=== PATIENT | female | born 1950 | race Caucasian/White ===

== ENCOUNTER 2018-05-13 09:30 | Inpatient (IN) | payer OTHER ==
[~2018-05-13] VITALS: Ht 160 cm; Wt 99.3 kg
[~2018-05-13 09:30] MED LIST: ALLOPURINOL 10100 M1 PO; ALLOPURINOL 30300 M2 PO; AMOXICILLIN 50500 MG PO; AUGMENTIN 875-1 EACH PO; COZAAR 25 MG TA25 M1 PO; DEMADEX20 MG PO; DOXYCYCLINE 10100 MG PO; FLONASE 0.05%50 MCG NASAL; GYNE-LOTRIMIN-745 GM; KEFLEX500 MG PO; LASIX 40 MG TAB40 M2 PO; LEVOTHYROXINE; MELOXICAM PO; METFORMIN HCL500 MG PO; PANTOPRAZOLE SO40 M1 PO; POTASSIUM PO; POTASSIUM99 M1 PO; PRAVACHOL20 MG PO; TYLENOL325 MG PO
[2018-05-13 09:43] VITALS: BP 151/51
[2018-05-13 10:35] LABS: ALBUMIN 4.1 g/dL (3.4-5.0); CALCIUM 7.3 mg/dL (8.5-10.1); DIRECT BILIRUBIN 0.1 mg/dL (<0.1-0.3); TOTAL BILIRUBIN 0.5 mg/dL (<0.1-1.0); TOTAL PROTEIN 7.9 g/dL (6.4-8.2)
[2018-05-13 10:37] LABS: POTASSIUM 2.5 mmol/L (3.5-5.1)
[2018-05-13 11:29] LABS: BASOPHILS 0.2 % (0.0-2.0); EOSINOPHILS 0.5 % (0.0-3.0); HEMATOCRIT 26.3 % (37.0-47.0); HEMOGLOBIN 9.1 gm/dL (12.0-15.0); LYMPHOCYTES 11.9 % (24.0-44.0); MCHC 34.5 g/dL (28.0-37.0); MCV 83.9 fL (80.0-100.0); MONOCYTES 5.3 % (1.0-8.0); PLATELET COUNT 286 thou/uL (150-400); POLYS 82.1 % (36.0-66.0); RBC 3.14 mil/uL (4.20-5.00); RDW 14.3 % (10.5-14.5); WBC 13.4 thou/uL (4.0-11.0)
--- NOTE | 2018-05-13 11:32 | NUR ---
PT STATES THAT THE POTASSIUM IS HURTING IT IS INFUSING. LOWERED RATE TO 25 ML/HR FOR PT'S COMFORT. EXPLAINED TO PT THAT THE PAIN IS NORMAL AND WOULD ASK PROVIDER FOR SOME MAINTENENCE FLUIDS THAT WILL HELP WITH THE PAIN. WILL CONTINUE TO MONITOR AND INTERVENE PRN.
[2018-05-13 12:54] LABS: URINE BILIRUBIN NEGATIVE (Negative); URINE BLOOD 1+ (Negative); URINE CLARITY CLEAR; URINE COLOR YELLOW; URINE GLUCOSE-RANDOM* NEGATIVE (Negative); URINE KETONES NEGATIVE (Negative); URINE LEUKOCYTES-REFLEX NEGATIVE (Negative); URINE NITRITE-REFLEX NEGATIVE (Negative); URINE PROTEIN (DIPSTICK) NEGATIVE (Negative); URINE UROBILINOGEN 0.2 E.U./dl (0.2-1.0)
[2018-05-13 13:03] LABS: BACTERIA-REFLEX 1-9 Few /HPF (None Seen); CASTS None Seen /LPF (None Seen); CRYSTALS None Seen /LPF (None Seen); SQUAMOUS 0-3 Few /LPF (0-3); URINE RBC 0-2 Rare /HPF (0-2); URINE WBC-REFLEX 0-5 Rare /HPF (0-5)
[2018-05-13] MEDS ORDERED: SYNTHROID25 MC1 PO (14:18)
[2018-05-13] MEDS ORDERED: LASIX 40 MG TAB40 M2 PO (14:20)
[2018-05-13] MEDS ORDERED: HYDROXYZINE HCL25 M1 PO (14:20)
[2018-05-13] MEDS ORDERED: ZYLOPRIM300 MG PO (14:21)
[2018-05-13] MEDS ORDERED: CALCITRIOL0.25 MCG PO (14:22)
[2018-05-13] MEDS ORDERED: ZAROXOLYN 5MG TA5 MG PO (14:22)
[2018-05-13 14:45] VITALS: BP 114/50
[2018-05-13 15:10] VITALS: BP 132/57
[2018-05-13 15:55] VITALS: BP 152/70
[2018-05-13 17:42] LABS: % SATURATION 22 % (20-39); IRON 73 ug/dL (50-170); TIBC 332 ug/dL (250-450)
--- NOTE | 2018-05-13 18:11 | NUR ---
PATIENT ADMIT TO UNIT AT 1600. A/O X4. GENERLIZED TREEACE EDEMA. DENIES N/V. WEAKNESS. WILL KEP MONITOR.
[2018-05-13 20:10] VITALS: BP 121/60
[2018-05-14 00:15] VITALS: BP 137/54
--- NOTE | 2018-05-14 03:07 | NUR ---
resting quietly, tonight. calls approp for assist out of bed. continues on ivfluids. no concerns voiced by pt. daisy reviewed.
[2018-05-14 05:00] VITALS: BP 138/52
[2018-05-14 05:51] LABS: HEMOGLOBIN 8.3 gm/dL (12.0-15.0); MCH 29.4 pg (26.0-34.0); MCHC 34.6 g/dL (28.0-37.0); MCV 84.9 fL (80.0-100.0); RBC 2.83 mil/uL (4.20-5.00); RDW 13.9 % (10.5-14.5); WBC 13.3 thou/uL (4.0-11.0)
[2018-05-14 06:13] LABS: ALBUMIN 3.6 g/dL (3.4-5.0); CALCIUM 7.3 mg/dL (8.5-10.1); CREATININE 6.6 mg/dL (0.6-1.0); PHOSPHORUS 7.1 mg/dL (2.5-4.9)
[2018-05-14 06:22] LABS: POTASSIUM 2.4 mmol/L (3.5-5.1)
--- NOTE | 2018-05-14 07:26 | HC ---
[facility] [place] [address] CONSULTATION Name: JYOTI DAMICO Room #: 363-P ADM IN M.R.#: [id number] Admission: 05/13/18 ������������������ Attend Phys: Solomon Vergara MD Discharge: ������������������ Date of : 46 Report #: [id number] THIS REPORT FOR: //name// CC: Solomon Gold MD DATE OF SERVICE: 05/13/2018 REASON FOR CONSULTATION: Chronic kidney disease stage 5 with acute worsening. HISTORY OF PRESENT ILLNESS: This is a 68-year-old female who has chronic kidney disease stage 5. She is followed chronically in our office by Dr. Naomi Montilla. She saw Dr. Montilla in the office about 12 days ago. At that time, her creatinine level was 5.6. She was not deemed to be uremic at that time. She had been on chronic furosemide 80 mg in the morning and 40 in the afternoon, but was having increasing amounts of edema. The patient states she has gained about 50 pounds over the past year, but obviously only some of its edema on looking at her today. The patient was given a prescription for metolazone 5 mg to be taken once daily, which she did for a few days, but she began feeling very weak. She called back to the office and was instructed to go to every other day administration, but for some reason which she explains as being, I thought I could handle it, she continued to take it once daily. That was until about 4 days ago when she finally stopped. Since that time, she has continued to be weak. She has had fatigue. She has not been herself. She has not been able to eat. She has had nausea and some dry heaves. No diarrhea. She has had some mid abdominal pain. She denies dyspnea. Her edema has resolved. She is unaware of fevers, chills or sweats. Her finally brought her into the Emergency Room today because she was feeling so poorly. Her blood pressures at home have been in the 140/70 range according to the patient. On presentation to the Emergency Room, the lowest blood pressure was 123/43 and then a couple of hours later, down to 114/50. She has had no fever. She was given some IV fluids in the Emergency Room. This did not change the way she felt very much. She has had previous hospitalizations at this hospital and had been on some nonsteroidals at that time. She vehemently denies nonsteroidals at this time. She has atrophic kidney. She has longstanding diabetes and hypertension in addition. PAST MEDICAL HISTORY: Diabetes as noted above. Also, hypertension as noted above. Hypothyroidism was diagnosed a number of years ago. It looks like she has been off and then on and then off thyroid replacement over the years. Most recently, it looks like she has actually been taking levothyroxine 0.025 mg once daily, although apparently she has still high TSH on her last office visit. She has had some anemia associated with chronic kidney disease. She is unable to take oral iron. She has not been able to get erythropoietin as a supplement due to lack of ability to make the copay. [facility] [address] [place] [address] CONSULTATION Name: JYOTI DAMICO Room #: 363-P ADM IN M.R.#: [id number] Admission: 05/13/18 ������������������ Attend Phys: Solomon Vergara MD Discharge: ������������������ Date of : 46 Report #: [id number] PAST SURGICAL HISTORY: Include placement of a right upper arm brachiocephalic fistula, which appears to be in 09/2017. MEDICATIONS: Losartan 50 mg daily, furosemide 80 mg in the morning and 40 mg in the evening or afternoon. Calcitriol 0.25 mcg daily. Metolazone, which she was taking 5 mg daily, although has not taken in the last 4 days. Pravastatin 20 mg daily, pantoprazole 40 mg daily, hydroxyzine 25 mg at bedtime, allopurinol 150 mg daily and the levothyroxine 0.025 mg daily. ALLERGIES: SULFA, WHICH CAUSES A RASH. FAMILY HISTORY: Noncontributory. SOCIAL HISTORY: The patient is and accompanied by her at this time. They live in [place], [place]. She is retired. She is a nonsmoker. REVIEW OF SYSTEMS: Again, has felt very weak and tired and fatigued recently. She says her edema has gotten better. Again, decreased appetite. She has had some nausea and dry heaves, says she has not had enough in her stomach actually of emesis. No diarrhea. No difficulty voiding urine. She has had some back discomfort, which she describes as being worse and it is in the low back after a fall about a month ago when she fell on the ice. She is unaware of fevers, chills or sweats. She denies headache or visual change. PHYSICAL EXAMINATION: GENERAL: A 68-year-old female, awake, responsive, a bit of euphoric affect. VITAL SIGNS: Blood pressure 132/57, heart rate 56, respiratory rate 18, oxygen saturation 95%, temperature 98.1. HEENT: Pupils are equal and reactive. Sclerae nonicteric. Oral mucosa is moist at this time. NECK: Supple without adenopathy, thyromegaly, JVD or bruit. CHEST: Clear bilaterally. HEART: Regular rate and rhythm. I hear no rub. ABDOMEN: Has bowel sounds, which are present, is soft. She says she has pain in the mid abdomen, but I cannot find organomegaly, masses or tenderness. EXTREMITIES: Showed no lower extremity edema. She has 1+ peripheral pulses. She has a right upper arm brachiocephalic fistula in place, which has matured fairly nicely. LABORATORY DATA: Sodium 123, potassium 2.5, chloride 81, bicarb 25, BUN 135, creatinine 7.0, glucose 130, total bilirubin 0.5, calcium 7.3, phosphorus 4.9, magnesium 1.4. Alkaline phosphatase 140, ALT 18, total protein 7.9, albumin 4.1. Hemoglobin 9.1, hematocrit 26.3, white count 13.4, platelets 286,000. Differential on the white count, 82 neutrophils, 12 lymphs, 5 monocytes. Urinalysis: Specific gravity 1.010, pH 5.5, 1+ blood, 0-5 white cells, 0-[address] [address] CONSULTATION Name: JYOTI DAMICO Room #: 363-P ADM IN [facility].#: [id number] Admission: 05/13/18 ������������������ Attend Phys: Solomon Vergara MD Discharge: ������������������ Date of : 48 Report #: [id number]. I reviewed her chest x-ray, which shows no infiltrate or evidence of heart failure. Ultrasound shows atrophic kidneys with multiple acquired cyst. ASSESSMENT: 1. Chronic kidney disease stage 5. She has been at stage 5 for a long period of time. She has had recent problems with volume management. She became much more symptomatic when metolazone was added to her regimen. It was effective in getting rid of her edema, but obviously left her feeling poorly, and also she has developed hyponatremia and hypokalemia with this. We will stop her diuretics at this time. I will judiciously give her back a bit of volume. If her symptoms improve and her creatinine comes back down and her electrolytes correct, we can probably continue her on an outpatient regimen. If those things do not all correct, it could well be that she has become uremic and then we need to start her on dialysis. I am not on the impression that she is uremic at this time, or at least that is the entire presentation here. Her fistula is ready to use if she does need dialysis, so once again will see how she responds to a bit of IV fluids. 2. Longstanding hypertension. Mid-range today, possibly a bit lower than she is used to with the addition of the metolazone recently. 3. Type 2 diabetes, on no medications at this time. 4. Hypothyroidism. We will need to recheck the level of her TSH. 5. Anemia, a bit better than she was in the office, but that may be due to the hemoconcentration. I will recheck iron levels, so we can give her some iron and potentially erythropoietin here in the hospital. PLAN: 1. I will give her some IV fluids, normal saline at 100 mL an hour. 2. Replace some oral potassium. 3. Monitor intake and output. 4. Repeat labs in the morning. 5. Recheck thyroid levels. 6. Recheck iron levels and replace as needed. 7. We will see how she responds in the next 24 hours and then make further decisions as to whether we need to start dialysis or not. ��������������������������������������������� <ELECTRONICALLY SIGNED> ���������������������������������������� By: Kale Huang MD ��������������������������������������������� 05/14/18 0726 [id number] Kale Huang MD /nt
[2018-05-14 07:45] VITALS: BP 13/43
[2018-05-14 16:33] VITALS: BP 124/41
--- NOTE | 2018-05-14 16:49 | NUR ---
INITIAL ASSESSMENT: Received consult. SW reviewed chart and spoke with attending physician. Pt was admitted from home due to pancreatitis an acute on chronic kidney injury. Pt with hx of CKD stage 5. Pt may need to start dialysis. Pt's manager distribution is Dr. Montilla. PCP is Dr. Gold. Per chart, pt is alert/orientated x 4 and lives at home with her s/o. Prior to admission, pt was independent with ADLs. No use of DME prior to admission. SW will follow up with pt tomorrow to discuss discharge planning and possible new dialysis.
--- NOTE | 2018-05-14 19:45 | NUR ---
assumed patient care at 0700. a/o x4. pleasant. denies pain. up stb. progressing towards poc goals.
[2018-05-14 20:06] VITALS: BP 132/45
[2018-05-15 03:44] VITALS: BP 154/67
--- NOTE | 2018-05-15 05:17 | NUR ---
AFTER ASSESSMENT WHILE READING PHYSICIAN NOTES, IT WAS NOTED THAT THE PT WAS GOING TO BE A MST PT. CALLED SHASHI TONEY AND DISCUSSED THE MATTER AND REASONS TO SUPPORT THE MOVE AND IT WAS AGREED. PT ESTABLISHED ON TELE AND RUNNING SR. REVIEW LABS AND WILL MONITOR THE ELECTROLYTES. PT DID NOT HAVE DIARRHEA OVERNIGHT AND STATES NO MORE N/V. PT REFUSED TO WEAR SCD'S OVERNIGHT, EDUCATED THE PT ON THE POSITIVES BUT SHE STILL SAID "No". FOLLOWING POC WITH IVF AND MOVING TOWARDS DC GOALS.
[2018-05-15 06:29] LABS: ALBUMIN 3.4 g/dL (3.4-5.0); CALCIUM 7.2 mg/dL (8.5-10.1); CREATININE 6.2 mg/dL (0.6-1.0); PHOSPHORUS 5.9 mg/dL (2.5-4.9); POTASSIUM 3.2 mmol/L (3.5-5.1)
[2018-05-15 07:42] VITALS: BP 132/51
[2018-05-15 15:04] VITALS: BP 158/56
--- NOTE | 2018-05-15 15:12 | NUR ---
VELASQUEZ reviewed chart and spoke with nursing and attending physician. Pt to have first dialysis today and will have dialysis tomorrow. Pt currently off the unit having dialysis. VELASQUEZ spoke with Linda at [facility] to begin process of arranging pt's outpatient dialysis. VELASQUEZ faxed clinical info to Linda for review. Pt had AV fistula placed about a year ago. VELASQUEZ will follow up with pt at a later time. VELASQUEZ is following to assist as needed with discharge planning.
--- NOTE | 2018-05-15 15:30 | NUR ---
TO 4E VIA BED FOR HD.
--- NOTE | 2018-05-15 16:35 | NUR ---
BACK TO UNIT UNABLE TO HD. STATES WILL TRY AGAIN IN AM.
--- NOTE | 2018-05-15 17:11 | NUR ---
END OF SHIFT NOTE. PT TO HD TODAY,, UNSUCCESSFUL. VSS. NO COMPLAINTS OF PAIN. AMBULATING WITH ASSIST. VOIDING PER BATHROOM.
[2018-05-15 19:07] VITALS: BP 147/58
[2018-05-16 03:54] VITALS: BP 135/50
--- NOTE | 2018-05-16 05:13 | NUR ---
ASSUNED PATIENT CARE AT 1845. PATIENT VITALS ARE STABLE. NURSE ADMINISTERED POTASSIUM TAB PER HCP ORDER TO TX LOW POTASSIUM LEVEL. PATIENT AMBULATES WITH SBA DUE TO LINES. PATIENT HAD NO COMPLAINTS OF N/V ON THIS SHIFT. SHE POSSIBLE WILL RECIEVE DIALYSIS IS HER R UPPER ARM FISTULA CAN BE ACCESSED. SHE IS COOPERATIVE WITH CARE AND PLEASANT. POSSIBLE D/C TODAY.
[2018-05-16 06:12] LABS: ALBUMIN 3.2 g/dL (3.4-5.0); CALCIUM 7.7 mg/dL (8.5-10.1); CREATININE 6.2 mg/dL (0.6-1.0); PHOSPHORUS 5.1 mg/dL (2.5-4.9); POTASSIUM 3.7 mmol/L (3.5-5.1)
--- NOTE | 2018-05-16 09:41 | NUR ---
PATIENT WENT TO HD AT 0750.
[2018-05-16 12:46] VITALS: BP 129/51
[2018-05-16 15:10] LABS: HEPATITIS B SURFACE AG Negative (Negative)
--- NOTE | 2018-05-16 16:15 | NUR ---
VELASQUEZ reviewed chart and spoke with nursing and attending physician. Pt had first dialysis this morning. Dialysis was unsuccessful yesterday due to not being able to access pt's fistula. VELASQUEZ faxed updated progress note to Linda at [facility]. Per Linda, [facility] will reach out to pt to discuss location and pt's insurance. VELASQUEZ met with pt and s/o at bedside. Introduced role of SW. Pt is alert/orientated x 4. Pt reports she lives at home. Prior to admission, pt was independent with ADLs. No use of DME. Pt's PCP is Dr. Gold. SW discussed need to arrange outpatient dialysis. Pt states she does not know if she will need it director long term care. SW explained that physician has ordered to arrange outpatient dialysis. Pt and s/o verbalized understanding. SW is following to assist as needed with discharge planning.
[2018-05-16 17:12] VITALS: BP 135/51
--- NOTE | 2018-05-16 17:56 | NUR ---
ASSUMED PATIENT CARE AT 0700. A/O X4. LOERATED HD TODAY. NO SOB, NO PAIN. UP WITH STB. PROGRESSING TOWARDS POC GOALS.
[2018-05-16 20:10] VITALS: BP 126/56
--- NOTE | 2018-05-17 04:10 | NUR ---
resting quietly tonight. she stated that she is feeling more tired than usual since dialysis. she has no more complaints of nausea. calls approp for assist out of bed. she did complain of some generalized discomfort, acetaminophen effective. progressing toward discharge goals.
[2018-05-17 05:00] VITALS: BP 119/60
[2018-05-17 07:56] VITALS: BP 143/64
--- NOTE | 2018-05-17 13:35 | NUR ---
VELASQUEZ reviewed chart and spoke with nursing and attending physician. Pt had second dialysis treatment today. Pt will have dilaysis tomorrow and possibly discharge home after dialysis. VELASQUEZ received call from Linda at [facility] stating that she has availability at [facility] for M-W-F 1st shift: 0545 or 0630 or 2nd shift: 1115. Itzel [facility] educator will meet with pt and s/o tomorrow prior to discharge. VELASQUEZ met with pt and s/o at bedside to discuss discharge plan and to discuss chair time. Pt states that she still does not know if she will need dialysis when discharged. SW explained that renal is wanting outpatient dialysis, so outpatient dialysis will be coordinated. Pt requests to go to the [facility] clinic, due to location. VELASQUEZ spoke with Linda at [facility] to provide update and request available chair times at [facility]. Awaiting chair times at this time. VELASQUEZ is following to assist as needed with discharge planning.
--- NOTE | 2018-05-17 15:10 | NUR ---
Nutrition: Seen for new dialysis consult. Reports appetite and intake has not been good today, however has been good with 100% intake previously. States she has gainned 50 lbs within the last year after stopping metformin medication, so UBW has varied. Current wt 220 lbs. Has increased 5 lbs from admission, could be due to fluid. Provided new renal diet education and will change diet order to renal. Low nutrition risk.
[2018-05-17 15:41] VITALS: BP 131/55
[2018-05-17 19:43] VITALS: BP 137/43
[2018-05-18 04:38] VITALS: BP 132/52
--- NOTE | 2018-05-18 06:06 | NUR ---
Patient has slept most of shift. Standby when using bathroom. Patient denies any concerns. Patient scheduled for hemodialysis today. Patient making progress toward plan of care goals.
[2018-05-18 07:46] VITALS: BP 142/53
[2018-05-18 11:54] VITALS: BP 142/53
--- NOTE | 2018-05-18 14:13 | NUR ---
DISCHARGE NOTE: VELASQUEZ reviewed chart and spoke with nursing and attending physician. Pt had third dialysis treatment today and is medically stable for discharge home today with outpatient dialysis. Itzel [facility] educator met with pt and s/o earlier today to discuss outpatient dialysis. Itzel scheduled pt to have an outpatient fistulagram on Monday. Pt will begin outpatient dialysis at [facility]-2nd shift. VELASQUEZ spoke with Chantal at [facility], who states pt will need to arrive at 1100 on Monday. Pt has been accepted to [facility] and [facility] is verifying pt's insurance. VELASQUEZ met with pt and s/o at bedside to provide update and discuss discharge plan. Pt and s/o verbalized understanding. Pt's s/o has info for fistulagram. SW placed instructions and info for [facility] in discharge summary. Pt's s/o to provide transportation home. No additional SW needs identified at this time, but is available to assist should needs arise.
[2018-05-18 15:00] VITALS: BP 142/53
[2018-05-18 15:03] VITALS: BP 142/53
--- NOTE | 2018-05-18 15:12 | NUR ---
DISCHARGE ORDERS RECEIVED. PATIENT DISCHARGING TO HOME TODAY. DISCHARGE ORDERS, DISCHARGE SUMMARY, DIALYSIS FLOW SHEETS, DIALYSIS CLINICALS, H&P, AND FACESHEET FAXED TO MELANY [facility] OUTPAIENT DIALYSIS COORDINATOR. FAX NUMBER . VERIFIED ALL RECEIVED. PATIENT TO RESUME OUTPATIENT DIALYSIS TREATMENTS MONDAY. PATIENT TO RECEIVE OUTPATIENT DIALYSIS TREATMENTS AT THE [facility], TUESDAYS, THURSDAYS, AND SATURDAYS, SECOND SHIFT. NIRMALA NOTIFIED OF PATIENT DISCHARGE PER UNIT SW.
[2018-05-18] MEDS ORDERED: RENVELA800 MG PO (15:19)
[2018-05-18] MEDS ORDERED: ZOFRAN ODT4 MG DISSOLVE (15:53)
== END 2018-05-18 17:13 | disposition home or self-care (01) | DRG 682 ==
LOC: ER 09:30 → 3W 13:32 → EROBS 13:32 → 3W 15:45 → ENTRNSPT 05-18 16:45 → 3W 05-18 17:13
PROVIDERS: Emergency Medicine; Internal Medicine Nephrology; ADMIT Internal Medicine
PROC: 5A1D70Z Performance of Urinary Filtration, Intermittent, Less than 6 Hours Per Day (ICD-10-PCS; principal; 2018-05-15)
PROC: 5A1D70Z Performance of Urinary Filtration, Intermittent, Less than 6 Hours Per Day (ICD-10-PCS; 2018-05-16)
PROC: 5A1D70Z Performance of Urinary Filtration, Intermittent, Less than 6 Hours Per Day (ICD-10-PCS; 2018-05-17)
PROC: 5A1D70Z Performance of Urinary Filtration, Intermittent, Less than 6 Hours Per Day (ICD-10-PCS; 2018-05-18)
DX: I12.0 Hypertensive chronic kidney disease with stage 5 chronic kidney disease or end stage renal disease (principal); N18.6 End stage renal disease; N17.9 Acute kidney failure, unspecified; E87.1 Hypo-osmolality and hyponatremia; E11.22 Type 2 diabetes mellitus with diabetic chronic kidney disease; E87.6 Hypokalemia; E03.9 Hypothyroidism, unspecified; D64.9 Anemia, unspecified; E66.01 Morbid (severe) obesity due to excess calories; E83.39 Other disorders of phosphorus metabolism; K21.9 Gastro-esophageal reflux disease without esophagitis; Z88.2 Allergy status to sulfonamides; Z68.38 Body mass index [BMI] 38.0-38.9, adult; Z99.2 Dependence on renal dialysis
CPT/HCPCS: 10080; 10879; 32100

== ENCOUNTER 2021-02-16 16:14 | Emergency (ER) | payer MEDICARE ==
[~2021-02-16] VITALS: Ht 160 cm; Wt 107.1 kg
--- NOTE | ~2021-02-16 | EMS ---
[address] [address] EMS Patient Care Report Name: JYOTI DAMICO Room #: SUZANNE Benz.RJean#: [id number] Admission: 02/16/21 Attend Phys: Discharge: 02/17/21 Date of : 48 Report #: [id number] THIS REPORT FOR: //name// Report Transmitted: 02/17/2021 06:[address] [facility] Incident [id number] @ 02/16/2021 15:23 Incident Location [id number] [place] [address] Patient JYOTI DAMICO Female, 70 Years 1950 Patient Address [address] [place], [place] [id number] Patient History Dialysis, Patient Allergies No known allergies, Patient Medications Calcitriol, Chief Complaint Weakness Disposition Transported No Lights/Ashley Dispatch Reason Sick Person Transported To [facility] Narrative D- 76 YO FEMALE C/C WEAKNESS C- GENERALIZED WEAKNESS [address] [address] EMS Patient Care Report Name: JYOTI DAMICO Room #: SUZANNE Metcalf.#: [id number] Admission: 02/16/21 Attend Phys: Discharge: 02/17/21 Date of : 48 Report #: [id number] H- HTN, CHRONIC KIDNEY DISEASE, TYPE 2 DIABETIC A- INTIAL ASSESSMENT FOUND PT SITTING ERECT IN A DIALYSIS CHAIR AT A LOCAL DIALYSIS CLINIC. PT STATED SHE WAS TOO WEAK TO GET OUT OF DIALYSIS CHAIR. PT AOX4, GCS 15, VS WNL, LUNG SOUNDS AUSCULTATED WITH RHONCHI THROUGHOUT ALL PABLO, AIRWAY INTACT. PT HAD REPETITIVE COUGH. BLUE SURGICAL MASK PLACED ON PT. NO LIFE THREATS FOUND. PT LIFTED WITH eZonoHIFT GAIT BELT FASHIONED WITH BLANKET AND AIDED TO COT, PT SECURED TO COT. PT HOT TO TOUCH, PT WAS CONFIRMED COVID POSITIVE. PT COVERED WITH BLANKET DUE TO PATIENT FEELING COLD. PT LOADED INTO AMBULANCE. 12 LEAD OBTAINED WITH NO FINDINGS. PT HAD COMPLAINT OF NAUSEA. IV ATTEMPTED. SECONDARY ASSESSMENT FOUND PT AOX4, GCS 15, VS WNL, LUNG SOUNDS AUSCULTATED WITH RHONCHI THROUGHOUT ALL PABLO, AIRWAY INTACT. PT STILL REPETITIVELY COUGHING. RADIO REPORT CALLED INTO [facility] ER. UPON ARROVAL, PT WAS TRIAGED BY CHARGE NURSE TO WHEEL CHAIR IN WAITING ROOM. CHARGE NURSE JOHNSON WAS INFORMED PT WAS TOO WEAK TO STAND. CHARGE NURSE JOHNSON ACKNOWLEDGED AND RECONFIRMED PT TO BE TAKEN TO WHEEL CHAIR IN WAITING ROOM. PT TAKEN TO WAITING ROOM, PT FULL LIFT X3 FROM COT TO WHEELCHAIR. REPORT GIVEN TO URIEL SALAZAR. MEDIC 41 CLEAR AND RETURNING. R- ASSESSMENTS, IV ATTEMPTSX3, VS T- PT TRANSPORTED BY [facility] TO [facility] ER Initial Vitals @15:33P: 111,R: 20,BP: 132/52,Pain: 0/10,GCS: 15,SpO2: 95,Revised Trauma: 12, @15:43P: 114,R: 11,BP: 139/69,Pain: 0/10,GCS: 15,Glucose: 105,SpO2: 95,Revised Trauma: 12, @15:44P: 75,R: 12,Pain: 0/10,GCS: 15,SpO2: 96,[place] Suspected: false @16:03P: 75,R: 20,BP: 125/52,Pain: 0/10,GCS: 15,SpO2: 94,Revised Trauma: 12, @16:03P: 74,R: 20,Pain: 0/10,GCS: 15,SpO2: 95,[place] Suspected: false @16:04P: 76,R: 20,Pain: 0/10,GCS: 15,SpO2: 94, Assessments @15:34MENTAL:Time Oriented,Person Oriented,Place Oriented,Event Oriented,SKIN:Hot,HEENT:Eyes: Left Pupil: 3-mm,Eyes: Right Pupil: 3-mm,Head/Face: No Abnormalities,Neck/Airway: No Abnormalities,LUNG SOUNDS:General: No Abnormalities,ABDOMEN:General: No Abnormalities,PELVIS//GI:EXTREMITIES:Capillary Refill: Left Upper: 3 Sec,Right Leg: Edema,Left Leg: Edema,Left Arm: No Abnormalities,Right Arm: No Abnormalities,PULSE:Radial: 2+ Normal,NEURO:No Abnormalities,@15:49MENTAL:Time Oriented,Person Oriented,Place Oriented,Event Oriented,SKIN:Hot,HEENT:Eyes: Right Pupil: 3-mm,Eyes: Left Pupil: 3-mm,Head/Face: No [address] [address] EMS Patient Care Report Name: JYOTI DAMICO Room #: DEP LUÍS Weber#: [id number] Admission: 02/16/21 Attend Phys: Discharge: 02/17/21 Date of : 46 Report #: [id number] Abnormalities,Neck/Airway: No Abnormalities,LUNG SOUNDS:General: No Abnormalities,ABDOMEN:General: No Abnormalities,PELVIS//GI:EXTREMITIES:Left Leg: Edema,Right Leg: Edema,Capillary Refill: Left Upper: 3 Sec,Left Arm: No Abnormalities,Right Arm: No Abnormalities,PULSE:Radial: 2+ Normal,NEURO:No Abnormalities, Impression Generalized Weakness Procedures @15:34 ALS Assessment Response: UnchangedSucceeded @15:49 ALS Assessment Response: UnchangedSucceeded @15:44 12-Lead ECG Response: UnchangedSucceeded @16:03 12-Lead ECG Response: UnchangedSucceeded @15:51 IV Therapy - Normal Saline (.9% NaCl) 0cc (20 ga) Site: Forearm-Left Response: UnchangedFailed @15:53 IV Therapy - Normal Saline (.9% NaCl) 5cc (18 ga) Site: Antecubital-Left Response: UnchangedFailed @15:55 IV Therapy - Normal Saline (.9% NaCl) 0cc (22 ga) Site: Antecubital-Left Response: UnchangedFailed Timeline 15:22,Call Received 15:22,Psap Call 15:23,Dispatched 15:26,En Route 15:30,On Scene 15:32,At Patient 15:33,BP: 132/52 M,PULSE: 111,RR: 20 R,SPO2: 95 Ox,ETCO2: ,BG: ,PAIN: 0,GCS: 15, 15:34,ALS Assessment,Response: UnchangedSucceeded, 15:43,BP: 139/69 M,PULSE: 114,RR: 11 R,SPO2: 95 Ox,ETCO2: ,B,PAIN: 0,GCS: 15, 15:44,12-Lead ECG,Response: UnchangedSucceeded, 15:44,BP: / M,PULSE: 75,RR: 12 R,SPO2: 96 Ox,ETCO2: ,BG: ,PAIN: 0,GCS: 15, 15:49,ALS Assessment,Response: UnchangedSucceeded, 15:49,Depart Scene 15:51,IV Therapy - Normal Saline (.9% NaCl) 0cc 20 ga Site: Forearm-Left,Response: UnchangedFailed, 15:53,IV Therapy - Normal Saline (.9% NaCl) 5cc 18 ga Site: Antecubital-Left,Response: UnchangedFailed, 15:55,IV Therapy - Normal Saline (.9% NaCl) 0cc 22 ga Site: Antecubital-Left,Response: UnchangedFailed, 16:03,12-Lead ECG,Response: UnchangedSucceeded, 16:03,BP: / M,PULSE: 74,RR: 20 R,SPO2: 95 Ox,ETCO2: ,BG: ,PAIN: 0,GCS: 15, [facility] [address] [place] [address] EMS Patient Care Report Name: MOOKIEJYOTI Room #: DEP [facility].#: [id number] Admission: 02/16/21 Attend Phys: Discharge: 02/17/21 Date of : 46 Report #: [id number] 16:03,BP: 125/52 M,PULSE: 75,RR: 20 R,SPO2: 94 Ox,ETCO2: ,BG: ,PAIN: 0,GCS: 15, 16:04,BP: / M,PULSE: 76,RR: 20 R,SPO2: 94 Ox,ETCO2: ,BG: ,PAIN: 0,GCS: 15, 16:07,At Destination 16:54,Call Closed Disclaimer v1.1 Copyright 2021 [employer] This EMS Care Summary contains data elements from the applicable legal record (which may be displayed differently). It is designed to provide pertinent information for the following purposes: continuity of care, clinical quality, and state data reporting. The complete legal record is available to ED staff and administrators of the receiving hospital in [employer] Patient Tracker. All data is provided "as is."
--- NOTE | ~2021-02-16 | EMS ---
[address] [address] EMS Patient Care Report Name: JYOTI DAMICO Room #: PRE ER M.R.#: [id number] Admission: Attend Phys: Discharge: Date of : 46 Report #: [id number] THIS REPORT FOR: //name// Report Transmitted: 02/16/2021 18:46 EMS Care Summary [facility] Incident [id number] @ 02/16/2021 15:23 Incident Location [id number] [place] [address] Patient JYOTI DAMICO Female, 70 Years 1950 Patient Address [address] [place] [id number] Patient History Dialysis, Patient Allergies No known allergies, Patient Medications Calcitriol, Chief Complaint Weakness Disposition Transported No Lights/[place] Dispatch Reason Sick Person Transported To [facility] Narrative D- 76 YO FEMALE C/C WEAKNESS C- GENERALIZED WEAKNESS [address] [address] EMS Patient Care Report Name: JYOTI DAMICO Room #: PRE LUÍS M.R.#: [id number] Admission: Attend Phys: Discharge: Date of : 46 Report #: [id number] H- HTN, CHRONIC KIDNEY DISEASE, TYPE 2 DIABETIC A- INTIAL ASSESSMENT FOUND PT SITTING ERECT IN A DIALYSIS CHAIR AT A LOCAL DIALYSIS CLINIC. PT STATED SHE WAS TOO WEAK TO GET OUT OF DIALYSIS CHAIR. PT AOX4, GCS 15, VS WNL, LUNG SOUNDS AUSCULTATED WITH RHONCHI THROUGHOUT ALL PABLO, AIRWAY INTACT. PT HAD REPETITIVE COUGH. BLUE SURGICAL MASK PLACED ON PT. NO LIFE THREATS FOUND. PT LIFTED WITH MAKESHIFT GAIT BELT FASHIONED WITH BLANKET AND AIDED TO COT, PT SECURED TO COT. PT HOT TO TOUCH, PT WAS CONFIRMED COVID POSITIVE. PT COVERED WITH BLANKET DUE TO PATIENT FEELING COLD. PT LOADED INTO AMBULANCE. 12 LEAD OBTAINED WITH NO FINDINGS. PT HAD COMPLAINT OF NAUSEA. IV ATTEMPTED. SECONDARY ASSESSMENT FOUND PT AOX4, GCS 15, VS WNL, LUNG SOUNDS AUSCULTATED WITH RHONCHI THROUGHOUT ALL PABLO, AIRWAY INTACT. PT STILL REPETITIVELY COUGHING. RADIO REPORT CALLED INTO [facility] ER. UPON ARROVAL, PT WAS TRIAGED BY CHARGE NURSE TO WHEEL CHAIR IN WAITING ROOM. CHARGE NURSE ALEX WAS INFORMED PT WAS TOO WEAK TO STAND. CHARGE NURSE JOHNSON ACKNOWLEDGED AND RECONFIRMED PT TO BE TAKEN TO WHEEL CHAIR IN WAITING ROOM. PT TAKEN TO WAITING ROOM, PT FULL LIFT X3 FROM COT TO WHEELCHAIR. REPORT GIVEN TO URIEL SALAZAR. MEDIC 41 CLEAR AND RETURNING. R- ASSESSMENTS, IV ATTEMPTSX3, VS T- PT TRANSPORTED [facility] TO [facility] ER Initial Vitals @15:33P: 111,R: 20,BP: 132/52,Pain: 0/10,GCS: 15,SpO2: 95,Revised Trauma: 12, @15:43P: 114,R: 11,BP: 139/69,Pain: 0/10,GCS: 15,Glucose: 105,SpO2: 95,Revised Trauma: 12, @15:44P: 75,R: 12,Pain: 0/10,GCS: 15,SpO2: 96,PR Suspected: false @16:03P: 75,R: 20,BP: 125/52,Pain: 0/10,GCS: 15,SpO2: 94,Revised Trauma: 12, @16:03P: 74,R: 20,Pain: 0/10,GCS: 15,SpO2: 95,PR Suspected: false @16:04P: 76,R: 20,Pain: 0/10,GCS: 15,SpO2: 94, Assessments @15:34MENTAL:Time Oriented,Person Oriented,Place Oriented,Event Oriented,SKIN:Hot,HEENT:Eyes: Left Pupil: 3-mm,Eyes: Right Pupil: 3-mm,Head/Face: No Abnormalities,Neck/Airway: No Abnormalities,LUNG SOUNDS:General: No Abnormalities,ABDOMEN:General: No Abnormalities,PELVIS//GI:EXTREMITIES:Capillary Refill: Left Upper: 3 Sec,Right Leg: Edema,Left Leg: Edema,Left Arm: No Abnormalities,Right Arm: No Abnormalities,PULSE:Radial: 2+ Normal,NEURO:No Abnormalities,@15:49MENTAL:Time Oriented,Person Oriented,Place Oriented,Event Oriented,SKIN:Hot,HEENT:Eyes: Right Pupil: 3-mm,Eyes: Left Pupil: 3-mm,Head/Face: No [address] [address] EMS Patient Care Report Name: JYOTI DAMICO [facility] M.RJean#: [id number] Admission: Attend Phys: Discharge: Date of : 46 Report #: [id number] Abnormalities,Neck/Airway: No Abnormalities,LUNG SOUNDS:General: No Abnormalities,ABDOMEN:General: No Abnormalities,PELVIS//GI:EXTREMITIES:Left Leg: Edema,Right Leg: Edema,Capillary Refill: Left Upper: 3 Sec,Left Arm: No Abnormalities,Right Arm: No Abnormalities,PULSE:Radial: 2+ Normal,NEURO:No Abnormalities, Impression Generalized Weakness Procedures @15:34 ALS Assessment Response: UnchangedSucceeded @15:49 ALS Assessment Response: UnchangedSucceeded @15:44 12-Lead ECG Response: UnchangedSucceeded @16:03 12-Lead ECG Response: UnchangedSucceeded Timeline 15:22,Call Received 15:22,Psap Call 15:23,Dispatched 15:26,En Route 15:30,On Scene 15:32,At Patient 15:33,BP: 132/52 M,PULSE: 111,RR: 20 R,SPO2: 95 Ox,ETCO2: ,BG: ,PAIN: 0,GCS: 15, 15:34,ALS Assessment,Response: UnchangedSucceeded, 15:43,BP: 139/69 M,PULSE: 114,RR: 11 R,SPO2: 95 Ox,ETCO2: ,B,PAIN: 0,GCS: 15, 15:44,12-Lead ECG,Response: UnchangedSucceeded, 15:44,BP: / M,PULSE: 75,RR: 12 R,SPO2: 96 Ox,ETCO2: ,BG: ,PAIN: 0,GCS: 15, 15:49,ALS Assessment,Response: UnchangedSucceeded, 15:49,Depart Scene 16:03,12-Lead ECG,Response: UnchangedSucceeded, 16:03,BP: / M,PULSE: 74,RR: 20 R,SPO2: 95 Ox,ETCO2: ,BG: ,PAIN: 0,GCS: 15, 16:03,BP: 125/52 M,PULSE: 75,RR: 20 R,SPO2: 94 Ox,ETCO2: ,BG: ,PAIN: 0,GCS: 15, 16:04,BP: / M,PULSE: 76,RR: 20 R,SPO2: 94 Ox,ETCO2: ,BG: ,PAIN: 0,GCS: 15, 16:07,At Destination 16:54,Call Closed Disclaimer v1.1 Copyright 2021 [employer] This EMS Care Summary contains data elements from the applicable legal record (which may be displayed differently). It is designed to provide pertinent information for the following purposes: continuity of care, clinical quality, and state data reporting. The complete legal record is available to ED staff and administrators of the receiving hospital in [employer] Patient Tracker. All data [address] [address] EMS Patient Care Report Name: JYOTI DAMICO Room #: PRE M.R.#: [id number] Admission: Attend Phys: Discharge: Date of : 46 Report #: [id number] is provided "as is."
[~2021-02-16 16:14] MED LIST changes: +CALCITRIOL0.25 MCG PO; +HYDROXYZINE HCL25 M1 PO; +RENVELA800 MG PO; +SYNTHROID25 MC1 PO; +ZAROXOLYN 5MG TA5 MG PO; +ZOFRAN ODT4 MG DISSOLVE; +ZYLOPRIM300 MG PO
[2021-02-16 19:34] LABS: ABSOLUTE NEUTROPHILS 7.9 thou/uL (1.4-8.2); BASOPHILS 0.4 % (0.0-2.0); HEMATOCRIT 29.9 % (37.0-47.0); LYMPHOCYTES 3.7 % (24.0-44.0); MCH 31.4 pg (26.0-34.0); MCHC 33.4 g/dL (28.0-37.0); MCV 93.8 fL (80.0-100.0); MONOCYTES 3.6 % (1.0-8.0); PLATELET COUNT 238 thou/uL (150-400); POLYS 92.3 % (36.0-66.0); RBC 3.19 mil/uL (4.20-5.00); RDW 15.5 % (10.5-14.5); WBC 8.6 thou/uL (4.0-11.0)
[2021-02-16 19:45] LABS: CALCIUM 8.9 mg/dL (8.5-10.1); CREATININE 6.7 mg/dL (0.6-1.0)
[2021-02-16 19:50] LABS: ALBUMIN 3.2 g/dL (3.4-5.0); DIRECT BILIRUBIN 0.2 mg/dL (<0.1-0.2); TOTAL BILIRUBIN 0.7 mg/dL (0.2-1.0); TOTAL PROTEIN 7.8 g/dL (6.4-8.2)
[2021-02-17 01:00] VITALS: BP 114/46
--- NOTE | 2021-02-17 08:13 | EKG ---
[place] [address] [facility] [place] [address] ELECTROCARDIOGRAM REPORT Name: JYOTI DAMICO Room #: [facility]P 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1950 Requested By: Jitendra Ronquillo Order Number: [id number] MD: Eriberto Massey Measurements Intervals [place] Rate: 57 P: -13 IA: 148 QRS: -29 QRSD: 92 T: 46 QT: 466 QTc: 454 Interpretive Statements Sinus bradycardia Inferior infarct, old Consider anterior infarct No previous ECG available for comparison Electronically Signed On 02-17-2021 8:12:52 [employer]LL SLICING MACHINE TENDER by Eriberto Massey [email or web address] <ELECTRONICALLY SIGNED> By: Eriberto Massey MD, [facility] 02/17/[phone] Eriberto Massey MD, FACC /EPI
== END 2021-02-17 01:08 | disposition home or self-care (01) ==
LOC: ER 16:14
PROVIDERS: Student in an Organized Health Care Education/Training Program
DX: U09.9 Post COVID-19 condition, unspecified (principal); R53.82 Chronic fatigue, unspecified; I12.0 Hypertensive chronic kidney disease with stage 5 chronic kidney disease or end stage renal disease; E11.22 Type 2 diabetes mellitus with diabetic chronic kidney disease; N18.6 End stage renal disease; Z79.899 Other long term (current) drug therapy; Z88.2 Allergy status to sulfonamides